=== PATIENT | male | born 1970 | race Caucasian/White ===

== ENCOUNTER 2022-06-16 07:13 | Day surgery (SDC) | payer BC ==
[~2022-06-16] VITALS: Ht 188 cm; Wt 108.9 kg
[2022-06-16] MEDS ORDERED: BUPIVACAINE LIPOSOME/PF 266 MG/20 ML VIAL INFIL ONE (09:07)
[2022-06-16] MEDS ORDERED: MIDAZOLAM HCL 2 MG/2 ML VIAL (VERSED) ONE (09:30)
[2022-06-16] MEDS ORDERED: ROCURONIUM BROMIDE 10 MG/ML (ZEMURON) ONE (09:30)
[2022-06-16] MEDS ORDERED: ePHEDrine sulfate 50 MG/ML VIAL ONE (09:30)
[2022-06-16] MEDS ORDERED: ONDANSETRON HCL 4 MG/2 ML VIAL ONE (09:30)
[2022-06-16] MEDS ORDERED: KETOROLAC TROMETHAMINE 30 MG VIAL ONE (09:30)
[2022-06-16] MEDS ORDERED: NEOSTIGMINE METHYLSULFATE 1 MG/ML, 10 ML VIAL ONE (09:30)
[2022-06-16] MEDS ORDERED: SEVOFLURANE 15 MIN GAS INH ONE (09:30)
[2022-06-16] MEDS ORDERED: LR 1,000 ML IV.SOLN IV ONE (09:30)
[2022-06-16] MEDS ORDERED: PROPOFOL 200MG/ 20ML VIAL (DIPRIVAN) IV ONE (09:30)
[2022-06-16] MEDS ORDERED: GLYCOPYRROLATE 0.2 MG/ML VIAL ONE (09:30)
[2022-06-16] MEDS ORDERED: DEXAMETHASONE SOD PHOSPHATE 4 MG/ML VIAL ONE (09:30)
[2022-06-16] MEDS ORDERED: DIPHENHYDRAMINE INJ 50 MG/ML VIAL ONE (09:30)
[2022-06-16] MEDS ORDERED: HYDROmorphone 2 MG/ML VIAL ONE (09:30)
--- NOTE | 2022-06-16 10:48 | NUR ---
UTE SMALLWOOD WAS LOOKING FOR NEMESIO POLANCO WHO IS IN THE HUDDLE. GAVE ONLY THE EMPTY BED I CAN SEE IN RM 132A . CLARIFIED WITH JAMEL, OR NURSE EXPERT MEDICAL WRITER THAT I AM JUST GIVING AN EMPTY BED NOT THE ROOM. NEMESIO AFTER HUDDLE WILL ASSIGN THE ROOM FOR THAT POST OP.
[2022-06-16] MEDS ORDERED: fentaNYL CITRATE/PF 100 MCG/2 ML AMP IVP PRN (12:00)
[2022-06-16] MEDS ORDERED: ONDANSETRON HCL 4 MG/2 ML VIAL IVP PRN ×2 (12:00→12:15)
[2022-06-16] MEDS ORDERED: METOCLOPRAMIDE HCL 10 MG/2 ML VIAL IVP PRN (12:00)
[2022-06-16] MEDS ORDERED: MEPERIDINE HCL/PF 25 MG/ML DISP.SYRIN IVP PRN (12:00)
[2022-06-16] MEDS ORDERED: KETOROLAC TROMETHAMINE 15 MG VIAL IVP PRN (12:15)
[2022-06-16] MEDS ORDERED: ACETAMINOPHEN 325 MG TABLET PO PRN ×2 (12:15)
[2022-06-16] MEDS ORDERED: ZOLPIDEM TARTRATE 5 MG TABLET PO PRN (12:15)
[2022-06-16] MEDS ORDERED: fentaNYL CITRATE/PF 100 MCG/2 ML AMP ONE (12:56)
[2022-06-16 15:10] VITALS: BP_SYST 120
--- NOTE | 2022-06-16 15:10 | NUR ---
Report received from Erika aGrcia Rn. Pt is settled in bed, vs stable, a/xo x4, no acute distress. IV fluids infusing. Denies any pain at this time. Post op vital signs initiated. Abdominal dressing is clean, dry and intact, VIVEK drain to right lower quadrant in place draining with sanguinous fluids. Assuming care for pt at this time.
[2022-06-16 16:00] VITALS: BP_SYST 120
[2022-06-16] MEDS ORDERED: LINA145C PO (16:06)
[2022-06-16] MEDS ORDERED: ALPR0.5T PO (16:06)
[2022-06-16] MEDS ORDERED: MOME0.5P NAS (16:06)
[2022-06-16] MEDS: LR 1,000 ML IV SCH ×2 (16:22→21:16)
[2022-06-16] MEDS: CEFAZOLIN 1 GM IVPB PREMIX 50 ML IV SCH ×2 (17:15→23:01)
[2022-06-16] MEDS: MORPHINE 4 MG INJ. 4 MG/ML VIAL IVP PRN ×2 (17:16→22:53)
[2022-06-16 20:00] VITALS: BP_SYST 107
[2022-06-16] MEDS: DOCUSATE SODIUM 100 MG CAPSULE PO SCH (21:00)
[2022-06-17] VITALS: BP_SYST 109
[2022-06-17 08:00] VITALS: BP_SYST 107
[2022-06-17] MEDS: LR 1,000 ML IV SCH (08:15)
[2022-06-17] MEDS: DOCUSATE SODIUM 100 MG CAPSULE PO SCH (08:51)
[2022-06-17] MEDS: MORPHINE 4 MG INJ. 4 MG/ML VIAL IVP PRN (10:20)
[2022-06-17 11:49] VITALS: BP_SYST 110
[2022-06-17 12:02] VITALS: BP_SYST 105
== END 2022-06-18 11:52 | disposition home or self-care (01) ==
LOC: SDS 07:13 → SMU 07:13 → SDS 06-18 11:52
PROVIDERS: ATTEND Surgery
DX: K43.2 Incisional hernia without obstruction or gangrene (principal); F90.9 Attention-deficit hyperactivity disorder, unspecified type; Z20.822 Contact with and (suspected) exposure to COVID-19; Z79.899 Other long term (current) drug therapy
CPT/HCPCS: 36415 ×2; 88302; 87426; 49565; 49568; U0003; C9290; J0690; J1100; J1200; J3490; J1885; J3465; J2405; J2704; J3010; J1170; J2270 ×2; J7120; C1781; J2710